=== PATIENT | female | born 1960 | race Caucasian/White ===

== ENCOUNTER 2016-09-10 15:06 | Emergency (ER) | payer MEDICARE, OTHER ==
[~2016-09-10 15:06] MED LIST: ACETAMINOPHEN325 MG PO; ASPIR 8181 MG PO; BACLOFEN10 MG PO; BENADRYL ALLERG25 MG PO; CELEBREX200 MG PO; CLARITIN10 MG PO; CLOTRIMAZOLE28 GM TOP; COREG25 MG PO; CYMBALTA60 MG PO; DESENEX85 GM TOP; GLUCOPHAGE1000 MG PO; IBUPROFEN600 MG PO; KLOR-CON-1010 MEQ PO; LASIX40 MG PO; LEVAQUIN750 MG PO; LISINOPRIL20 MG PO; LORTAB 5-325 M1 EACH PO; NEURONTIN600 MG PO; NEXIUM40 MG PO; NYSTATIN15 GM TOP; NYSTATIN5 ML PO; PERCOCET 7.5-31 EACH PO; PRAVACHOL80 MG PO; PREDNISONE10 MG PO; PRINIVIL20 MG PO; REQUIP2 MG PO; SEROQUEL XR200 MG PO; SEROQUEL300 MG PO; TUSSIONEX PENN115 ML PO; ULTRAM50 MG PO
== END 2016-09-10 15:30 | disposition home or self-care (01) ==
LOC: ER 15:06
DX: G89.29 Other chronic pain (principal); M54.5 Low back pain; M25.551 Pain in right hip; M25.552 Pain in left hip; J44.9 Chronic obstructive pulmonary disease, unspecified; I10 Essential (primary) hypertension; Z87.891 Personal history of nicotine dependence; Z90.710 Acquired absence of both cervix and uterus; Z79.82 Long term (current) use of aspirin; Z79.84 Long term (current) use of oral hypoglycemic drugs; Z79.899 Other long term (current) drug therapy